=== PATIENT | male | born 1935 | race Caucasian/White ===

== ENCOUNTER → 2023-01-21 | Outpatient (CLI) | payer MEDICARE ==
[~2023-01-21] MED LIST: IOHEXOL-350 75 ML VIAL IV ONE
== END | disposition home or self-care (01) ==
LOC: RAH 14:44
PROVIDERS: ATTEND Physician Assistant Medical
DX: G31.9 Degenerative disease of nervous system, unspecified (principal); H53.461 Homonymous bilateral field defects, right side
CPT/HCPCS: 70470; Q9967

== ENCOUNTER 2023-10-06 12:40 | Day surgery (SDC) | payer MEDICARE ==
[2023-10-04 11:27] LABS: BASOPHILS # (AUTO) 0.06 K/uL (0.00-0.20); BASOPHILS % (AUTO) 0.7 % (0.0-5.0); EOSINOPHILS # (AUTO) 0.22 K/uL (0.00-0.70); EOSINOPHILS % (AUTO) 2.6 % (0.0-8.0); HEMATOCRIT 35.2 % (42-54); IMMATURE GRANULOCYTE ABSOLUTE 0.04 K/uL (0-1); MEAN CORPUSCULAR HGB CONC 30.1 g/dL (32.0-36.0); MEAN CORPUSCULAR VOLUME 79.6 fL (79-99); MONOCYTES # (AUTO) 0.8 K/uL (0.1-1.0); MONOCYTES % (AUTO) 9.2 % (3.0-13.0); NEUTROPHILS # (AUTO) 5.3 K/uL (1.8-7.7); PLATELET COUNT (AUTO) 288 K/uL (130-400); RED BLOOD CELL COUNT(AUTO) 4.42 MIL/uL (4.50-6.20); RED CELL DISTRIBUTION WIDTH 19.7 % (11.0-15.5); WHITE BLOOD COUNT (AUTO) 8.5 K/uL (4.8-10.8)
[2023-10-04 11:37] LABS: POTASSIUM 5.1 mmol/L (3.5-5.1)
[2023-10-04 11:40] LABS: INR 0.98 (0.85-1.15); PROTHROMBIN TIME 11.4 SEC (9.6-11.6)
[2023-10-04 11:42] LABS: PARTIAL THROMBOPLASTIN TIME 30.1 SEC (26.3-35.5)
[2023-10-04 11:56] LABS: B-TYPE NATRIURETIC PEPTIDE 225 pg/mL (0-100)
[2023-10-05 10:02] VITALS: BP 144/74; PULSE 64; RESP 17
[2023-10-06] VITALS (9 sets, daily range): BP systolic 111–146; BP diastolic 53–74; PULSE 64–79; RESP 14–18
[~2023-10-06] VITALS: Ht 172.7 cm; Wt 89.9 kg
[~2023-10-06 12:40] MED LIST changes: -IOHEXOL-350 75 ML VIAL IV ONE; +LEVO75TA10 PO
[2023-10-06] MEDS ORDERED: LIDOCAINE HCL 400MG/20ML VIAL ONE (13:29)
[2023-10-06] MEDS ORDERED: FENTANYL CITRATE PF 50 MCG/1 ML 2ML VIAL ONE (13:29)
[2023-10-06] MEDS ORDERED: IOHEXOL 350 MG/ML 100ML INFUS..BTL IV ONE (13:30)
[2023-10-06] MEDS ORDERED: VERAPAMIL HCL 2.5 MG/ML VIAL ONE (13:30)
[2023-10-06] MEDS ORDERED: HEPARIN 10,000 UNIT/10ML (1,000 UNIT/ML) VIAL ONE (13:30)
[2023-10-06] MEDS ORDERED: MIDAZOLAM HCL 1 MG/ML 2ML VIAL ONE ×2 (13:30→14:26)
[2023-10-06] MEDS ORDERED: NITROGLYCERIN 50MG VIAL ONE (13:30)
[2023-10-06] MEDS ORDERED: 0.9%NACL 1000ML 1,000 ML IV ONE (14:11)
[2023-10-06] MEDS ORDERED: IOHEXOL-350 50ML VIAL IV ONE (14:23)
[2023-10-06] MEDS ORDERED: 0.9%NACL 1000ML 1,000 ML IV SCH (15:00)
[2023-10-06] MEDS ORDERED: HYDRALAZINE 20MG/ML VIAL IV PRN (15:00)
[2023-10-06] MEDS ORDERED: HYDRALAZINE 20MG/ML VIAL ONE (16:29)
== END 2023-10-06 18:15 | disposition home or self-care (01) ==
LOC: DAH 12:40
PROVIDERS: ATTEND Internal Medicine
DX: I35.0 Nonrheumatic aortic (valve) stenosis (principal); I25.10 Atherosclerotic heart disease of native coronary artery without angina pectoris; E03.9 Hypothyroidism, unspecified; G20.A1 Parkinson's disease without dyskinesia, without mention of fluctuations; Z79.899 Other long term (current) drug therapy; Z79.01 Long term (current) use of anticoagulants; Z98.890 Other specified postprocedural states; Z96.653 Presence of artificial knee joint, bilateral; Z79.890 Hormone replacement therapy
CPT/HCPCS: 80048; 83880; 85025; 85610; 85730; 36415; 71045; 93005; 93454; C1894 ×2; C1769; J3010; J3490 ×3; J7030 ×2; J0360; J1644 ×2; J2250 ×2; Q9967 ×2; A4215; A4222; A4221; A4663; A4216; A4606; Q9965 ×2; A4223 ×3; 96366; 99156; 99157; A4649

== ENCOUNTER → 2023-10-19 | Outpatient (CLI) | payer MEDICARE ==
[~2023-10-19] MED LIST changes: +IOHEXOL 350 MG/ML 100ML INFUS..BTL IV ONE
== END | disposition home or self-care (01) ==
LOC: RAH 07:52
PROVIDERS: ATTEND Internal Medicine
DX: I25.10 Atherosclerotic heart disease of native coronary artery without angina pectoris (principal); I35.0 Nonrheumatic aortic (valve) stenosis; I51.7 Cardiomegaly; M47.815 Spondylosis without myelopathy or radiculopathy, thoracolumbar region; I70.90 Unspecified atherosclerosis; K40.90 Unilateral inguinal hernia, without obstruction or gangrene, not specified as recurrent; K44.9 Diaphragmatic hernia without obstruction or gangrene
CPT/HCPCS: 74174; 75574; Q9967

== ENCOUNTER → 2024-02-11 | Outpatient (CLI) | payer MEDICARE ==
[~2024-02-11] MED LIST changes: -IOHEXOL 350 MG/ML 100ML INFUS..BTL IV ONE
== END | disposition home or self-care (01) ==
LOC: SHCH 12:41
PROVIDERS: ATTEND Internal Medicine Cardiovascular Disease
DX: I08.0 Rheumatic disorders of both mitral and aortic valves (principal); I25.10 Atherosclerotic heart disease of native coronary artery without angina pectoris; Z95.2 Presence of prosthetic heart valve
CPT/HCPCS: 93306

== ENCOUNTER 2024-07-08 13:11 | Emergency (ER) | payer MEDICARE ==
[~2024-07-08] VITALS: Ht 172.7 cm; Wt 84.8 kg
[2024-07-08 13:50] LABS: RAPID GROUP A STREP negative (NEGATIVE)
[2024-07-08 14:00] LABS: INFLUENZA TYPE A Negative For Type A (NEGATIVE); INFLUENZA TYPE B Negative For Type B (NEGATIVE)
[2024-07-08 14:03] LABS: SARS-CoV-2, RNA, NAAT POSITIVE SARS CoV-2 (NEGATIVE)
[2024-07-08] MEDS: ONDANSETRON ODT 4MG TAB SL ONE (14:54)
[2024-07-08 15:13] VITALS: BP 143/68; PULSE 57; RESP 16; TEMP 98.3; O2SAT 100
[2024-07-08] MEDS ORDERED: ONDA-243 PO (15:16)
[2024-07-08] MEDS ORDERED: PAXLOVID PO (15:16)
== END 2024-07-08 16:07 | disposition home or self-care (01) ==
LOC: EDH 13:11
DX: U07.1 COVID-19 (principal); R11.0 Nausea; E03.9 Hypothyroidism, unspecified; Z79.890 Hormone replacement therapy; Z88.8 Allergy status to other drugs, medicaments and biological substances; Z96.653 Presence of artificial knee joint, bilateral; Z98.890 Other specified postprocedural states
CPT/HCPCS: 87635; 87804; 87880

== ENCOUNTER 2025-06-16 19:27 | Observation (INO) | payer MEDICARE ==
[~2025-06-16] VITALS: Ht 172.7 cm; Wt 83.9 kg
[~2025-06-16 19:27] MED LIST changes: +ONDA-243 PO; +PAXLOVID PO
[2025-06-16 20:09] LABS: IMMATURE GRANULOCYTE ABSOLUTE 0.04 K/uL (0-1); NUCLEATED RED BLOOD CELLS 0.0 % (0.0-0.19); PLATELET COUNT (AUTO) 253 K/uL (130-400); RED BLOOD CELL COUNT(AUTO) 4.82 MIL/uL (4.50-6.20); RED CELL DISTRIBUTION WIDTH 12.4 % (11.0-15.5); WHITE BLOOD COUNT (AUTO) 8.7 K/uL (4.8-10.8)
[2025-06-16] MEDS: 0.9%NACL 1000ML 1,000 ML IV ONE (20:26)
[2025-06-16 20:30] LABS: CREATININE 0.8 mg/dL (0.5-1.3); GLOMERULAR FILTR. RATE CALC 86 mL/min (>90); GLUCOSE,RANDOM 110 mg/dL (70-105); SODIUM SERUM 135 mmol/L (136-145); UREA NITROGEN, BLOOD 11 mg/dL (7-18)
[2025-06-16 20:40] LABS: CREATINE KINASE, TOTAL 300 U/L (21-232)
[2025-06-16 21:09] LABS: ABG BASE EXCESS -2.5 mmol/L (-2.0-3.0); ABG HCO3 21.2 mmol/L (21.0-28.0); ABG OXYGEN SATURATION 97.3 % (94.0-98.0); ABG PCO2 34 mmHg (35-48); ABG PH 7.413 (7.350-7.450); PO2, ARTERIAL BG 93.4 mmHg (83.0-108.0); TEMPERATURE, CELSIUS BG 37.0 CELSIUS (35.5-37.0); VENT MODE, BG NC (ROOM AIR)
[2025-06-16 21:10] LABS: APPEARANCE,URINE CLEAR (CLEAR); GLUCOSE, URINE (UA) NEGATIVE (NEGATIVE); LEUKOCYTE ESTERASE ,URINE NEGATIVE Leu/uL (NEGATIVE); NITRATE,URINE NEGATIVE (NEGATIVE); OCCULT BLOOD,URINE NEGATIVE (NEGATIVE)
[2025-06-16] MEDS ORDERED: IOHEXOL-350 75 ML VIAL IV ONE (21:10)
[2025-06-16 21:13] LABS: ADD UA MICROSCOPIC YES
[2025-06-16 21:17] LABS: AMPHET/METH SCREEN,URINE NEGATIVE (NEGATIVE); BARBITURATE SCREEN, URINE NEGATIVE (NEGATIVE); CANNABINOID SCREEN,URINE NEGATIVE (NEGATIVE); COCAINE SCREEN,URINE NEGATIVE (NEGATIVE)
--- NOTE | 2025-06-16 21:40 | HMCIMG ---
EXAM: CR Chest, 1 View. CLINICAL HISTORY: sob COMPARISON: Radiograph dated October 04, 2023 FINDINGS: Stimulator device and leads are not changing positions. LUNGS: There is no mass, infiltrate, or acute pulmonary abnormality. PLEURAL SPACES: No evidence of pleural effusion or pneumothorax. MEDIASTINUM: Heart size is stable. Pulmonary vessels are within normal limits. BONES: No acute osseous abnormality. IMPRESSION: 1. No acute cardiopulmonary findings. /[place]
--- NOTE | 2025-06-16 21:46 | HMCIMG ---
EXAM: CT Head Without IV contrast. CLINICAL HISTORY: Patient presents with altered mental status. TECHNIQUE: Axial computed tomography images of the head/brain without intravenous contrast. COMPARISON: CT head dated January 21, 2023. 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 Linear electrode leads are identified in the deep brain nuclei along the bilateral thalami, consistent with deep brain stimulation hardware. There is diffuse cerebral atrophy characterized by prominence of the cortical sulci and ventricular system. There are periventricular hypoattenuations consistent with chronic microangiopathic ischemic changes. No evidence of acute hemorrhage. No mass lesion. No CT evidence for acute territorial infarct. No midline shift or extra-axial collections. VENTRICLES: No hydrocephalus. ORBITS: The orbits are unremarkable. SINUSES AND MASTOIDS: The paranasal sinuses and mastoid air cells are clear. BONES: Bilateral frontal craniotomy defects and postsurgical changes involving the left parietal bone. No acute fracture. SOFT TISSUES: Unremarkable. 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 Diffuse cerebral atrophy and periventricular chronic microangiopathic ischemic changes. Deep brain stimulation hardware in expected position along bilateral thalami. Bilateral frontal craniotomy defects and postsurgical changes involving the left parietal bone. No acute intracranial abnormality. /[place]
--- NOTE | 2025-06-16 22:42 | HMCIMG ---
EXAM: CT Abdomen and Pelvis without and with IV contrast. CLINICAL HISTORY: Nausea and vomiting. TECHNIQUE: Thin collimated axial CT images of the abdomen and pelvis were obtained with sagittal and coronal reformatted images also submitted. CT scan done according to ALARA (As Low As Reasonably Achievable). CONTRAST: Intravenous contrast was administered. COMPARISON: None. FINDINGS: Unremarkable visualized lung parenchyma. Coronary artery calcification and prosthetic aortic valve in place. Small hiatus hernia. There is no focal abnormality appreciated within the liver, gallbladder, pancreas, spleen, adrenals, or kidneys. There is no obvious bowel wall thickening. Bowel loops are normal in caliber without evidence of obstruction or ileus. The appendix is normal. Mild constipation. Uncomplicated colonic diverticulosis. Partially distended urinary bladder with Shafer's catheter in place. Mild prostatomegaly. Moderate calcific plaques in the abdominal aorta. No lymphadenopathy. No free fluid. Fat-containing bilateral inguinal hernias. There is no acute osseous abnormality. Moderate thoracolumbar spondylosis and dextroscoliosis. IMPRESSION: 1. No acute abdominal or pelvic abnormality. 2. Small hiatus hernia. 3. Coronary artery calcification and prosthetic aortic valve. 4. Mild prostatomegaly. 5. Uncomplicated colonic diverticulosis with mild constipation. 6. Bilateral fat-containing inguinal hernias. 7. Moderate thoracolumbar spondylosis and dextroscoliosis. /[place]
--- NOTE | 2025-06-16 23:54 | HP ---
History of Present Illness Reason for Visit: sob History of Present Illness Mr. Wheatley is a 89 year old male that was seen and examined today on 06/16/2025. Patient is unable to provide any past medical history at this time due to receiving Valium in the emergency department. Patient's , Trevon Glover is at bedside and provides the following information. At about 4:30 p.m. patient began to appears short of breath. Location is to lungs. Duration is on and off. Character is described as, " like he was having trouble breathing, look like he was struggling but he was not breathing fast. "There was no aggravating factors. Symptoms were alleviated after receiving Valium in the emergency department. reports associated burping and altered mental status. Like" he is not himself. " Today in the emergency department CBC unremarkable, chemistry unremarkable, urinalysis unremarkable, urine toxicology unremarkable, chest x-ray unremarkable, head CT shows focal encephalomalacia of the left occipital lobe, chronic ischemic changes, deep brain stimulator hardware. Emergency room physician recommended that patient be admitted with a diagnosis of shortness of breath and altered mental status. Past Medical History ADDITIONAL PAST MEDICAL HISTORY: [Hypothyroidism, CAD] SOCIAL HISTORY: [Negative for smoking, drug use. Patient drinks alcohol about once a week usually one beer, one Freda, or one glass of wine. Patient lives with his . Patient is typically independent of all his ADLs.] SURGICAL HISTORY: [Brain stimulator implant, TAVR, back cyst excision, hernia repair, bilateral knee replacement, AICD] Review of Systems General: No Fever, No Chills, No Night Sweats, No Fatigue, No Malaise, No Appetite, No Other HEENT: No Head Aches, No Visual Changes, No Eye Pain, No Ear Pain, No Dysphasia, No Sinus Congestion, No Post Nasal Drip, No Sore Throat, No Other Pulmonary: Dyspnea; No Cough, No Pleuritic Chest Pain, No Other Cardiovascular: No: Chest Pain, Palpitations, Orthopnea, Paroxysmal Noc. Dyspnea, Edema, Lt Headedness, Other Gastrointestinal: Other (Burping); No: Nausea, Vomiting, Abdominal Pain, Diarrhea, Constipation, Melena, Hematochezia Genitourinary: No Dysuria, No Frequency, No Incontinence, No Hematuria, No Retention, No Other Musculoskeletal: No: other, neck pain, shoulder pain, arm pain, back pain, hand pain, leg pain, foot pain Skin: No Urticaria, No Rash, No Other Neurological: Confusion; No: Weakness, Numbness, Incoordination, Change in speech, Seizures, Other Allergies: Coded Allergies: Gkctvtn-Sjm-Gce Reductase Inhibitor (Unverified Allergy, Intermediate, 10/23/13) Scheduled Levothyroxine Sodium (Levothyroxine Sodium), 1 TAB PO DAILY, (Reported) [Paxlovid], 300 MG PO BID Scheduled PRN Ondansetron (Ondansetron Odt), 4 MG PO Q6HPRN PRN for nausea Exam Vital Signs Vital Signs Date Time Temp Pulse Resp B/P (MAP) Pulse Ox O2 Delivery O2 Flow Rate FiO2 06/16/25 21:09 98.2 72 18 118/56 99 Room Air* 0 21 General Appearance: Alert (X1) HEENT: Atraumatic, EOMI Respiratory: Clear to auscultation, Normal air movement, NL respiratory effort Cardiovascular: Regular rate, Regular rhythm, Normal S1, Normal S2 Abdominal: Normal bowel sounds, Soft, No tenderness Extremities: No edema Skin: No significant lesion Neuro: Other (Unable to assess) Psych/Mental Status: Other (Per patient is confused) Assessment/Plan ASSESSMENT: [ Altered mental status, POA Shortness of breath, POA Hypothyroidism, POA CAD] PLAN: [ Admit patient to medical floor as inpatient status. Fall precautions. DuoNebs every 6 hours. Check TSH in a.m.. Consult teleNeurology Service for evaluation and further recommendations. Reviewed patient's CT which shows focal encephalomalacia to the left occipital lobe and chronic ischemic changes as well as deep brain stimulator implant however states that at baseline patient typically has regular conversations and nose current events. Patient received IV Valium in the emergency department. Atorvastatin 40 mg by mouth daily. GI prophylaxis, famotidine DVT prophylaxis, Lovenox ADVANCED CARE PLANNING 1. Which of the following were discussed? Hospice Care - Yes Therapeutic options - yes Advance Directives - Yes - patient does not have any advance directives in place at this time Other discussions - patient's can make decisions for him if he becomes unable. wishes for patient to remain a full code at this time 2. Discussed with who? , Trevon Glover 3. Voluntary nature of this service was explained to the patient? Yes 4. Amount of time spent - ___16 minutes____ 5. Reviewed by Physician? (if this service was performed by NPP) Yes This document was generated in part using voice recognition software, occasional wrong word or sound alike substitutions may have occurred due to the inherent limitations of voice recognition software. Read the chart carefully and recognize using context, where the substitutions have occurred. Although every effort was made to edit the content, food crops farm hand and typing errors may occur ATTESTATION BY PHYSICIAN I have seen and examined the patient. I reviewed the documentation, medical decision making, and treatment plan as noted by the mid-level provider above. I agree with the findings and plan of care. ] JANET BASS [facility] Jun 16, 2025 23:54
--- NOTE | 2025-06-16 23:55 | ERN ---
General Chief Complaint: Shortness of Breath Stated Complaint: SOB X 1-2 HOURS Time Seen by MD: 19:36 Time Seen by Midlevel: 19:36 Source: patient, family () History of Present Illness Initial Comments The patient is an 89-year-old male presenting to the emergency department for evaluation of shortness of breath. According to EMS the initial call was for shortness for breath. When arrived to the emergency department she states her was doing yd work when he became short of breath and diaphoretic. On arrival patient is unable to answer any of our questions. When asked if he is in pain the patient does not answer. Allergies: Coded Allergies: Gkuicjl-Qoj-Aba Reductase Inhibitor (Unverified Allergy, Intermediate, 10/23/13) Home Meds Active Scripts Ondansetron (Ondansetron Odt) 4 Mg Tab.rapdis, 4 MG PO Q6HPRN PRN for nausea, #16 TAB 0 Refills Prov:DAYAN LUIS FAMILY DAY CARE WORKER 07/08/24 [Paxlovid] 3,00/,150 No Conflict Check, 300 MG PO BID for 5 Days, #50 0 Refills THREE TABLETS BY MOUTH TWICE A DAY FOR FIVE DAYS. Prov:DAYAN LUIS NP 07/08/24 Reported Medications Levothyroxine Sodium (Levothyroxine Sodium) 75 Mcg Tablet, 1 TAB PO DAILY 10/05/23 Past Medical History Past Medical History: Heart Disease, Hypothyroid Past Surgical History: Pacer/AICD, Other Surgical History Other: BILAT KNEE REPLACEMENT, DBS, ABD HERNIA REPAIR, CYST, BACK SX,TAVR ROS Dictation CONSTITUTIONAL: Negative except for HPI HEAD/FACE: Negative except for HPI EENT: Negative except for HPI RESPIRATORY: Negative except for HPI GASTROINTESTINAL/ABDOMINAL: Negative except for HPI GENITOURINARY: Negative except for HPI MUSCULOSKELETAL: Negative except for HPI INTEGUMENTARY: Negative except for HPI NEUROLOGICAL/PSYCH: Negative except for HPI HEMATOLOGIC/LYMPHATIC: Negative except for HPI All Systems Negative, Except as noted above. 13 point review of systems assessed and all negative except for above. Physical Exam Physical Exam Dictation Vital Signs reviewed General Appearance: Alert, nonverbal Head and Face: non-traumatic. Eyes: PERRL, pink conjunctivas, eyelid no trauma, anterior chamber with arcus senilis. Ears: Pinnas intact and no signs of trauma or erythema ear canals clear and no discharge TM no erythema Nose: No discharge, no bleeding. Oropharynx: Mouth normal, tongue pink, pharynx clear,no erythema, tonsils no exudates, no abscesses noted, mucous membrane moist Neck: Supple, non-tender, no thyromegaly, no masses, no JVD, no bruits Breast:Deferred Chest:No tenderness, no crepitus, no paradoxical movement, no retractions Lungs:Clear, well-ventilated, symmetric, no rales, no wheezing, no rhonchi, no stridor, good breath sounds bilaterally Heart: Regular rate, regular rhythm, no murmur, no gallops Vascular: no peripheral edema, Abdomen: Soft, positive bowel sounds, nondistended, no guarding, nontender, no rebound, no masses no hepatomegaly, no splenomegaly, no Perez's sign, no hernias. Rectal: Deferred Genital: Deferred Neurological: Moves all four extremities spontaneously , follows simple commands Musculoskeletal: Neck nontender, full range of motion, back nontender, full range of motion, Extremities: nontender, full range of motion Skin: Color pink, dry, no turgor, no rash, no lacerations, no abrasions, no contusions. Lymphatic: Deferred Results Laboratory and Microbiology Lab and Micro Result Laboratory Tests Test 06/16/25 19:59 06/16/25 21:00 06/16/25 21:07 White Blood Count 8.7 K/uL (4.8-10.8) Red Blood Count 4.82 MIL/uL (4.50-6.20) Hemoglobin 15.4 g/dL (14.0-18.0) Hematocrit 42.5 % (42-54) Mean Corpuscular Volume 88.2 fL (79-99) Mean Corpuscular Hemoglobin 32.0 pg (27.0-33.0) Mean Corpuscular Hemoglobin Concent 36.2 g/dL (32.0-36.0) H Red Cell Distribution Width 12.4 % (11.0-15.5) Platelet Count 253 K/uL (130-400) Mean Platelet Volume 10.0 fL (7.5-10.5) Immature Granulocyte % (Auto) 0.5 % (0-1) Neutrophils (%) (Auto) 67.1 % (40.0-77.0) Lymphocytes (%) (Auto) 20.9 % (21.0-51.0) L Monocytes (%) (Auto) 9.3 % (3.0-13.0) Eosinophils (%) (Auto) 1.5 % (0.0-8.0) Basophils (%) (Auto) 0.7 % (0.0-5.0) Neutrophils # (Auto) 5.9 K/uL (1.8-7.7) Lymphocytes # (Auto) 1.8 K/uL (1.0-4.8) Monocytes # (Auto) 0.8 K/uL (0.1-1.0) Eosinophils # (Auto) 0.13 K/uL (0.00-0.70) Basophils # (Auto) 0.06 K/uL (0.00-0.20) Absolute Immature Granulocyte (auto 0.04 K/uL (0-1) Nucleated Red Blood Cells 0.0 % (0.0-0.19) Red Blood Cell Morphology See comments Sodium Level 135 mmol/L (136-145) L Potassium Level 3.9 mmol/L (3.5-5.1) Chloride Level 102 mmol/L (101-111) Carbon Dioxide Level 20 mmol/L (21-32) L Blood Urea Nitrogen 11 mg/dL (7-18) Creatinine 0.8 mg/dL (0.5-1.3) Glomerular Filtration Rate Calc 86 mL/min (>90) Random Glucose 110 mg/dL (70-105) H Total Calcium 9.3 mg/dL (8.5-10.1) Magnesium Level 1.90 mg/dL (1.80-2.40) Ammonia < 10 umol/L (11-32) L Total Creatine Kinase 300 U/L (21-232) H Troponin I High Sensitivity 16 ng/L (4-75) B-Type Natriuretic Peptide 113 pg/mL (0-100) H Serum Alcohol < 3 mg/dL (0-10) Urine Color LIGHT-YELLOW (YELLOW) Urine Appearance CLEAR (CLEAR) Urine pH 7.5 (5.0-8.0) Urine Specific [place] 1.013 (1.001-1.031) Urine Protein NEGATIVE mg/dL (NEGATIVE) Urine Glucose (UA) NEGATIVE mg/dL (NEGATIVE) Urine Ketones 10 mg/dL (NEGATIVE) H Urine Occult Blood NEGATIVE (NEGATIVE) Urine Nitrate NEGATIVE (NEGATIVE) Urine Bilirubin NEGATIVE mg/dL (NEGATIVE) Urine Urobilinogen 0.2 mg/dL (0.2-1.0) Urine Leukocyte Esterase NEGATIVE [place]/uL Urine RBC 0-1 /HPF (0-1) Urine WBC 2-5 /HPF (0-1) H Urine Bacteria RARE /HPF (None Seen) Urine Opiates Screen NEGATIVE (NEGATIVE) Urine Barbiturates Screen NEGATIVE (NEGATIVE) Urine Phencyclidine Screen NEGATIVE (NEGATIVE) Urine Amphetamines Screen NEGATIVE (NEGATIVE) Urine Benzodiazepines Screen NEGATIVE (NEGATIVE) Urine Cocaine Screen NEGATIVE (NEGATIVE) Urine Marijuana (THC) Screen NEGATIVE (NEGATIVE) Blood Gas Specimen Type Arterial Arterial Blood pH 7.413 (7.350-7.450) Arterial Blood Partial Pressure CO2 34 mmHg (35-48) L Arterial Blood Partial Pressure O2 93.4 mmHg (83.0-108.0) Arterial Blood HCO3 21.2 mmol/L (21.0-28.0) Arterial Blood Oxygen Saturation 97.3 % (94.0-98.0) Arterial Blood Base Excess -2.5 mmol/L (-2.0-3.0) L Blood Gas Temperature 37.0 CELSIUS (35.5-37.0) Blood Gas Flow-by 2.50 L/min (0.00-15.00) Blood Gas Vent Mode NC (ROOM AIR) FiO2 30.0 % Blood Gas Specimen Comment INA CHOWDHURY Labs Reviewed?: Yes MDM MDM: The patient is an 89-year-old male presenting to the emergency department for evaluation of shortness of breath. According to EMS the initial call was for shortness for breath. When arrived to the emergency department she states her was doing yd work when he became short of breath and diaphoretic. On arrival patient is unable to answer any of our questions. When asked if he is in pain the patient does not answer. On physical examination the patient appears to be in mild discomfort secondary to pain. However when asked if he is in pain the patient does not give you a direct answer. He does follow simple commands and is able to move all four extremities. No facial droop is noted. Given that the initial call to EMS was shortness of breath ABG was obtained which appears to be normal. CBC shows no leukocytosis, no anemia, no thrombocytopenia. Chemistries reveal a sodium of 135. CK slightly elevated at 300. BNP is 113. Troponin is negative. Urine drug screen is negative. Serum alcohol is negative. According to who is at bedside the patient is not at his baseline and has never behaved this way. A CT scan of the head was obtained which does not reveal any acute intracranial abnormality. While in the emergency department the patient became nauseous and had one episode of vomiting. Given that the patient is a poor historian a CT scan of the abdomen/pelvis was obtained which reveals no acute abdominal or pelvic abnormality. On re-evaluation the patient is not back to his baseline according to his . We will admit for altered mental status and further evaluation. Differential diagnosis: Altered mental status, urinary retention, Rationale: Tests considered and ordered secondary to shared decision making include: Previous outside records reviewed: Old ER visits. Risk of complication and/or morbidity or mortality of patient management: None Medications-Per medication reconciliation Need for hospitalization: Patient does meet criteria for hospitalization. Need for emergency major/minor surgery: No There are no social concerns with this patient. Prescription drug management Prescriptions will include symptomatic care Patient's prior external medical records from other ER visits were reviewed by me as indicated. Prior testing and results from previous visits were reviewed. Prior tests were taken into account with medical decision making and resource utilization, independent historian/historians were used to obtain complete [facility] history. I independently interpreted the test that were performed, results were reviewed by me and considered findings on radiology if ordered. Medical management and examination interpretation discussions were had by me with other qualified healthcare professionals as indicated for the patient's care. ED Course Orders Procedure Category Date Status Time 12 Lead Ekg Tracing- EKG 06/16/25 Logged Technical 19:48 Cbc With Differential LAB 06/16/25 Complete 19:48 Basic Metabolic Panel LAB 06/16/25 Complete 19:48 B-Type Natriuretic LAB 06/16/25 Complete Peptide 19:48 Creatine Kinase, Total LAB 06/16/25 Complete 19:48 Drug Screen Urine LAB 06/16/25 Complete 19:48 Magnesium LAB 06/16/25 Complete 19:48 Troponin I High LAB 06/16/25 Complete Sensitivity 19:48 Chest 1vw RAD 06/16/25 Resulted 19:48 0.9%Nacl 1000ml (Ns PHA 06/16/25 Complete 1000ml) 20:00 Arterial Blood Gas RT 06/16/25 Transmitted 19:48 Ct Head/Brain W/O CT 06/16/25 Resulted Contrast 19:48 Urinalysis Profile LAB 06/16/25 Complete 19:48 Ammonia LAB 06/16/25 Complete 19:48 Alcohol, Blood LAB 06/16/25 Complete 19:56 Diazepam 5 Mg/Ml 2 Ml PHA 06/16/25 Complete Syg (Valium 5 Mg/M 21:00 Ondansetron 4mg Inj PHA 06/16/25 Complete (Zofran 4mg Inj) 21:00 Ct Abdomen/Pelvis CT 06/16/25 Resulted W/Contrast 20:43 Nurse Driven Shafer DARIUS 06/16/25 In Process Removal Pro 20:44 Ondansetron 4mg Inj PHA 06/16/25 Complete (Zofran 4mg Inj) 20:45 Arterial Blood Gas LAB 06/16/25 Complete 21:07 Iohexol (Omnipaque) PHA 06/16/25 Complete 21:10 Admit Orders ADM 06/16/25 Transmitted 23:54 Current Medications Medications (Trade) Dose Ordered Sig/Khushi Route PRN Reason Start Time Stop Time Status Last Admin Dose Admin Diazepam (VALium 5 MG/ML 2 ML SYG) 2.5 mg ONCE ONCE IVP 06/16/25 21:00 06/16/25 21:01 DC 06/16/25 21:05 Iohexol (Omnipaque) 75 ml STK-MED ONCE IV 06/16/25 21:10 06/16/25 21:10 DC Ondansetron HCl (zoFRAN 4MG INJ) 4 mg ONCE ONCE IVP 06/16/25 21:00 06/16/25 21:01 DC 06/16/25 21:05 Ondansetron HCl (zoFRAN 4MG INJ) 4 mg STK-MED ONCE .ROUTE 06/16/25 20:45 06/16/25 20:46 DC Sodium Chloride 1,000 ml @ 0 mls/hr ONCE ONCE IV 06/16/25 20:00 06/16/25 20:01 DC 06/16/25 20:26 Vital Signs Date Time Temp Pulse Resp B/P (MAP) Pulse Ox O2 Delivery O2 Flow Rate FiO2 06/16/25 21:09 98.2 72 18 118/56 99 Room Air* 0 21 06/16/25 19:56 98.1 68 18 128/47 98 Room Air* 0 21 06/16/25 19:30 97.9 64 28 169/92 99 Nasal Cannula 2.0 DX & DISP Disposition: Inpatient Departure Impression: Primary Impression: Altered mental status Condition: Stable Referrals: EDMUNDO YUN (PCP) I have reviewed the case, and I agree with, Diagnosis and Plan I performed the substantive portion of the visit. I have reviewed and personally made and approve the management plan that is documented in the note by myself or the [facility]. I acknowledge for responsibility for the patient's management plan. EMBER HOLLOWAY Jun 16, 2025 23:55
[2025-06-17] VITALS (7 sets, daily range): BP systolic 110–143; BP diastolic 55–88; PULSE 68–88; RESP 18–20; TEMP 97.7–98.3; O2SAT 95–98
[2025-06-17 01:42] LABS: SARS-CoV-2, RNA, NAAT NEGATIVE SARS CoV-2 (NEGATIVE)
--- NOTE | 2025-06-17 02:11 | NUR ---
REPORT GIVEN TO REDD ANGLIN
--- NOTE | 2025-06-17 05:58 | EKG ---
[facility] Test Date: 2025-06-16 Test Time: 19:37:11 Pat Name: CHANEL HOLT [facility] Room: 322 1 Gender: M Regrinder: [id number] Requested By: EMBER HOLLOWAY Order Number: [id number] Reading MD: Rachel Houser Measurements Intervals [place] Rate: 72 P: 52 IN: 213 QRS: -29 QRSD: 104 T: 162 QT: 420 QTc: 451 Interpretive Statements Sinus rhythm Multiple ventricular premature complexes Borderline prolonged IN interval Consider anterior infarct Compared to ECG 10/04/2023 11:18:07 Ventricular premature complex(es) now present Myocardial infarct finding now present Electronically Signed On 06-17-2025 15:40:45 CDT by Rachel Houser Please click the below link to view image of tracing.
[2025-06-17 06:29] LABS: IMMATURE GRANULOCYTE ABSOLUTE 0.04 K/uL (0-1); NUCLEATED RED BLOOD CELLS 0.0 % (0.0-0.19); PLATELET COUNT (AUTO) 216 K/uL (130-400); RED BLOOD CELL COUNT(AUTO) 4.59 MIL/uL (4.50-6.20); RED CELL DISTRIBUTION WIDTH 12.8 % (11.0-15.5); WHITE BLOOD COUNT (AUTO) 9.4 K/uL (4.8-10.8)
[2025-06-17 06:56] LABS: CREATININE 0.8 mg/dL (0.5-1.3); GLOMERULAR FILTR. RATE CALC 86.0 mL/min (>90); GLUCOSE,RANDOM 104.0 mg/dL (70-105); PHOSPHORUS 3.4 mg/dL (2.5-4.9); SODIUM SERUM 138.0 mmol/L (136-145); UREA NITROGEN, BLOOD 7.0 mg/dL (7-18)
[2025-06-17] MEDS ORDERED: LEVO75 PO (08:42)
[2025-06-17] MEDS: FAMOTIDINE 20MG TAB PO SCH (08:42)
[2025-06-17] MEDS: ENOXAPARIN SODIUM 40 MG/0.4 ML SYRINGE SQ SCH (08:43)
--- NOTE | 2025-06-17 10:50 | PN ---
[facility] PROGRESS NOTE Date of Service: Jun 17, 2025 Time of Service: 10:48 SUBJECTIVE: [ ] REVIEW OF SYSTEMS CONSTITUTIONAL: Denies fevers, chills, or night sweats. No unintentional weight loss reported. NEUROLOGICAL: Denies headache, amaurosis fugax, motor weakness, sensory deficit, vertigo/spinning sensation, gait abnormalities, or tremors. ENT: No hearing loss, otalgia, otorrhea, rhinitis, rhinorrhea, hoarseness, or sore throat. CARDIOVASCULAR: Denies any exertional angina, dyspnea on exertion, orthopnea, paroxysmal nocturnal dyspnea, palpitations, life-threatening arrhythmias, claudication. PULMONARY: Denies any shortness of breath, cough, phlegm/sputum, hemoptysis, pleuritic chest pain. SLEEP: Denies morning headaches, daytime somnolence or napping. Denies difficulty falling asleep, staying asleep, waking from sleep. Denies knowledge of snoring. GASTROINTESTINAL: Denies any type of dysphagia to either liquids or solids. Denies nausea, vomiting, pyrosis, early satiety, abdominal pain, diarrhea, constipation, or changes in stool consistency or caliber. Denies coffee-ground emesis, hematemesis, hematochezia, or melanotic stools. GENITOURINARY: Denies frequency, urgency, nocturia, hematuria or incontinence (Storage/Irritative symptoms.) Low urinary stream, straining to void, urinary i ntermittency or hesitancy, splitting of the voiding stream, terminal dribbling. ENDOCRINOLOGIC: Denies polyuria, polydipsia, polyphagia or heat/cold intolerances. HEMATOLOGIC: Denies thrombophilia/previous clots, or coagulopathy/bleeding disorders. ONCOLOGIC: Denies personal history of malignancy. DERMATOLOGIC: Denies rashes or pruritus. PSYCHIATRIC: Denies any suicidal or homicidal ideation. Denies hallucinations. PHYSICAL EXAM GENERAL APPEARANCE: The patient is awake, alert, and oriented, in no acute cardiopulmonary distress. NEUROLOGICAL: Cranial nerves II-XII grossly intact. Motor is 5/5 in bilateral upper and lower extremities proximal to distal. No sensory deficits. HEENT: Face is symmetric. Pupils are equal and reactive. Extraocular movements are intact. NECK: Supple. No JVD. No thyromegaly. No submental, submandibular, pre- /postauricular, occipital or supraclavicular lymphadenopathy. CHEST: Normal chest expansion. No Telemetry. LUNGS: Absence of any rales, rhonchi or any wheezing. CARDIOVASCULAR: Regular. S1 and S2 normal. No appreciable rubs, murmurs or gallops. ABDOMEN: Soft, nontender, and nondistended. There is no rebound, voluntary guarding, or rigidity. : Deferred. No Shafer. EXTREMITIES: Non-edematous and not cyanotic. No clubbing. Good capillary refill. SKIN: No skin breakdown. Vital Signs (last 8hr) Date Time Temp Pulse Resp B/P (MAP) Pulse Ox O2 Delivery O2 Flow Rate FiO2 06/17/25 08:00 98.2 86 19 136/88 99 Room Air 06/17/25 06:47 80 18 06/17/25 06:47 80 20 N/A Room Air LABS: Laboratory: Test 06/17/25 09:36 06/17/25 06:23 06/17/25 01:21 06/16/25 21:07 Range/Units Lactic Acid Level 1.1 0.8-2.5 mmol/L Ammonia < 10 L 11-32 umol/L C-Reactive Protein, Quantitative 8.10 H 0.5-3.0 mg/L White Blood Count 9.4 4.8-10.8 K/uL Red Blood Count 4.59 4.50-6.20 MIL/uL Hemoglobin 14.3 14.0-18.0 g/dL Hematocrit 41.6 L 42-54 % Mean Corpuscular Volume 90.6 79-99 fL Mean Corpuscular Hemoglobin 31.2 27.0-33.0 pg Mean Corpuscular Hemoglobin Concent 34.4 32.0-36.0 g/dL Red Cell Distribution Width 12.8 11.0-15.5 % Platelet Count 216 130-400 K/uL Mean Platelet Volume 9.6 7.5-10.5 fL Immature Granulocyte % (Auto) 0.4 0-1 % Neutrophils (%) (Auto) 69.4 40.0-77.0 % Lymphocytes (%) (Auto) 18.7 L 21.0-51.0 % Monocytes (%) (Auto) 10.6 3.0-13.0 % Eosinophils (%) (Auto) 0.5 0.0-8.0 % Basophils (%) (Auto) 0.4 0.0-5.0 % Neutrophils # (Auto) 6.5 1.8-7.7 K/uL Lymphocytes # (Auto) 1.8 1.0-4.8 K/uL Monocytes # (Auto) 1.0 0.1-1.0 K/uL Eosinophils # (Auto) 0.05 0.00-0.70 K/uL Basophils # (Auto) 0.04 0.00-0.20 K/uL Absolute Immature Granulocyte (auto 0.04 0-1 K/uL Nucleated Red Blood Cells 0.0 0.0-0.19 % Sodium Level 138 136-145 mmol/L Potassium Level 4.3 3.5-5.1 mmol/L Chloride Level 104 101-111 mmol/L Carbon Dioxide Level 24 21-32 mmol/L Blood Urea Nitrogen 7 7-18 mg/dL Creatinine 0.8 0.5-1.3 mg/dL Glomerular Filtration Rate Calc 86 >90 mL/min Random Glucose 104 70-105 mg/dL Total Calcium 8.6 8.5-10.1 mg/dL Phosphorus Level 3.4 2.5-4.9 mg/dL Magnesium Level 2.00 1.80-2.40 mg/dL B-Type Natriuretic Peptide 141 H 0-100 pg/mL Thyroid Stimulating Hormone (TSH) 1.24 0.36-3.74 uIU/mL SARS-CoV-2, RNA, NAAT NEGATIVE SARS CoV-2 NEGATIVE Blood Gas Specimen Type Arterial Arterial Blood pH 7.413 7.350-7.450 Arterial Blood Partial Pressure CO2 34 L 35-48 mmHg Arterial Blood Partial Pressure O2 93.4 83.0-108.0 mmHg Arterial Blood HCO3 21.2 21.0-28.0 mmol/L Arterial Blood Oxygen Saturation 97.3 94.0-98.0 % Arterial Blood Base Excess -2.5 L -2.0-3.0 mmol/L Blood Gas Temperature 37.0 35.5-37.0 CELSIUS Blood Gas Flow-by 2.50 0.00-15.00 L/min Blood Gas Vent Mode NC ROOM AIR FiO2 30.0 % Blood Gas Specimen Comment RB RN [place] Test 06/16/25 21:00 06/16/25 19:59 Range/Units Urine Color LIGHT-YELLOW YELLOW Urine Appearance CLEAR CLEAR Urine pH 7.5 5.0-8.0 Urine Specific [place] 1.013 1.001-1.031 Urine Protein NEGATIVE NEGATIVE mg/dL Urine Glucose (UA) NEGATIVE NEGATIVE mg/dL Urine Ketones 10 H NEGATIVE mg/dL Urine Occult Blood NEGATIVE NEGATIVE Urine Nitrate NEGATIVE NEGATIVE Urine Bilirubin NEGATIVE NEGATIVE mg/dL Urine Urobilinogen 0.2 0.2-1.0 mg/dL Urine Leukocyte Esterase NEGATIVE NEGATIVE [place]/uL Urine RBC 0-1 0-1 /HPF Urine WBC 2-5 H 0-1 /HPF Urine Bacteria RARE None Seen /HPF Urine Opiates Screen NEGATIVE NEGATIVE Urine Barbiturates Screen NEGATIVE NEGATIVE Urine Phencyclidine Screen NEGATIVE NEGATIVE Urine Amphetamines Screen NEGATIVE NEGATIVE Urine Benzodiazepines Screen NEGATIVE NEGATIVE Urine Cocaine Screen NEGATIVE NEGATIVE Urine Marijuana (THC) Screen NEGATIVE NEGATIVE Red Blood Cell Morphology See comments Total Creatine Kinase 300 H 21-232 U/L Troponin I High Sensitivity 16 4-75 ng/L Serum Alcohol < 3 0-10 mg/dL Current Medications Medications (Trade) Dose Ordered Sig/Khushi Route PRN Reason Start Time Stop Time Status Last Admin Dose Admin Acetaminophen (TYLenol 325MG TAB) 650 mg Q6H PRN PO TEMPERATURE GREATER THAN 101.5 06/17/25 00:30 07/17/25 00:29 Albuterol (DUOneb) 1 UDVIAL [id number] IH 06/17/25 06:00 07/17/25 05:59 06/17/25 06:42 1 UDVIAL Enoxaparin Sodium (Lovenox) 40 mg DAILY SQ 06/17/25 09:00 07/17/25 08:59 06/17/25 08:43 40 MG Famotidine (Pepcid 20mg Tab) 20 mg DAILY PO 06/17/25 09:00 07/17/25 08:59 06/17/25 08:42 20 MG Guaifenesin (RobiTUSSin SUGAR-FREE 100 MG/ 5 ML UDCUP) 400 mg Q4H PRN PO cough 06/17/25 00:30 07/17/25 00:29 Hydralazine HCl (APRESOLine 20MG INJ) 10 mg Q6H PRN IV For:SBP above 160;DBP above 90 06/17/25 00:30 07/17/25 00:29 Levothyroxine Sodium (SYNTHroid 75MCG TAB) 75 mcg SYN PO 06/18/25 06:30 07/18/25 06:29 Morphine Sulfate (morPHINE 2MG SYG) 2 mg Q4H PRN IVP SEVERE PAIN (7-10) 06/17/25 00:30 06/24/25 00:29 Ondansetron HCl (zoFRAN 4MG INJ) 4 mg Q6H PRN IV NAUSEA/VOMITING 06/17/25 00:30 07/17/25 00:29 Quetiapine Fumarate (SEROquel 25 mg TAB) 25 mg BID PO 06/17/25 09:00 06/17/25 02:40 DC DIAGNOSTICS / RADIOLOGY: PATIENT: CHANEL HOLT MR#: [id number] : 1935 SEX: M AGE: 89 LOCATION: [facility] ORDER 48 STATUS: REG ER [facility] REPORT#: [id number] SERVICE 47 REASON: sob ORDERING PHYSICIAN: EMBER HOLLOWAY PROCEDURE: CXR1VW - CHEST 1VW EXAM: CR Chest, 1 View. CLINICAL HISTORY: sob COMPARISON: Radiograph dated October 04, 2023 FINDINGS: Stimulator device and leads are not changing positions. LUNGS: There is no mass, infiltrate, or acute pulmonary abnormality. PLEURAL SPACES: No evidence of pleural effusion or pneumothorax. MEDIASTINUM: Heart size is stable. Pulmonary vessels are within normal limits. BONES: No acute osseous abnormality. IMPRESSION: 1. No acute cardiopulmonary findings. /[place] DICTATED BY: OSCAR OLMSTEAD Jr., MD DATE: 06/16/252239 ELECTRONICALLY SIGNED BY: OSCAR OLMSTEAD Jr., MD DATE: 06/16/252239 PATIENT: CHANEL HOLT MR#: [id number] : 1935 SEX: M AGE: 89 LOCATION: [facility] ORDER 48 STATUS: REG ER REPORT#: [id number] SERVICE 47 REASON: ams ORDERING PHYSICIAN: EMBER HOLLOWAY PROCEDURE: HEAD WO - CT HEAD/BRAIN W/O CONTRAST EXAM: CT Head Without IV contrast. CLINICAL HISTORY: Patient presents with altered mental status. TECHNIQUE: Axial computed tomography images of the head/brain without intravenous contrast. COMPARISON: CT head dated January 21, 2023. 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 Linear electrode leads are identified in the deep brain nuclei along the bilateral thalami, consistent with deep brain stimulation hardware. There is diffuse cerebral atrophy characterized by prominence of the cortical sulci and ventricular system. There are periventricular hypoattenuations consistent with chronic microangiopathic ischemic changes. No evidence of acute hemorrhage. No mass lesion. No CT evidence for acute territorial infarct. No midline shift or extra-axial collections. VENTRICLES: No hydrocephalus. ORBITS: The orbits are unremarkable. SINUSES AND MASTOIDS: The paranasal sinuses and mastoid air cells are clear. BONES: Bilateral frontal craniotomy defects and postsurgical changes involving the left parietal bone. No acute fracture. SOFT TISSUES: Unremarkable. 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 Diffuse cerebral atrophy and periventricular chronic microangiopathic ischemic changes. Deep brain stimulation hardware in expected position along bilateral thalami. Bilateral frontal craniotomy defects and postsurgical changes involving the left parietal bone. No acute intracranial abnormality. /[place] DICTATED BY: OSCAR OLMSTEAD Jr., MD DATE: 06/16/252244 ELECTRONICALLY SIGNED BY: OSCAR OLMSTEAD Jr., MD DATE: 06/16/252244 PATIENT: CHANEL HOLT MR#: [id number] : 1935 SEX: M AGE: 89 LOCATION: ED ORDER 43 STATUS: REG ER REPORT#: [id number] SERVICE 42 REASON: NAUSEA AND VOMMITING ORDERING PHYSICIAN: EMBER HOLLOWAY PROCEDURE: ABD PEL W - CT ABDOMEN/PELVIS W/CONTRAST EXAM: CT Abdomen and Pelvis without and with IV contrast. CLINICAL HISTORY: Nausea and vomiting. TECHNIQUE: Thin collimated axial CT images of the abdomen and pelvis were obtained with sagittal and coronal reformatted images also submitted. CT scan done according to ALARA (As Low As Reasonably Achievable). CONTRAST: Intravenous contrast was administered. COMPARISON: None. FINDINGS: Unremarkable visualized lung parenchyma. Coronary artery calcification and prosthetic aortic valve in place. Small hiatus hernia. There is no focal abnormality appreciated within the liver, gallbladder, pancreas, spleen, adrenals, or kidneys. There is no obvious bowel wall thickening. Bowel loops are normal in caliber without evidence of obstruction or ileus. The appendix is normal. Mild constipation. Uncomplicated colonic diverticulosis. Partially distended urinary bladder with Shfaer's catheter in place. Mild prostatomegaly. Moderate calcific plaques in the abdominal aorta. No lymphadenopathy. No free fluid. Fat-containing bilateral inguinal hernias. There is no acute osseous abnormality. Moderate thoracolumbar spondylosis and dextroscoliosis. IMPRESSION: 1. No acute abdominal or pelvic abnormality. 2. Small hiatus hernia. 3. Coronary artery calcification and prosthetic aortic valve. 4. Mild prostatomegaly. 5. Uncomplicated colonic diverticulosis with mild constipation. 6. Bilateral fat-containing inguinal hernias. 7. Moderate thoracolumbar spondylosis and dextroscoliosis. /[place] DICTATED BY: OSCAR OLMSTEAD Jr., MD DATE: 06/16/252340 ELECTRONICALLY SIGNED BY: OSCAR OLMSTEAD Jr., MD DATE: 06/16/252340 ASSESSMENT: Altered mental status, POA Shortness of breath, POA Hypothyroidism, POA CAD PLAN: Altered mental status, POA Shortness of breath, POA Hypothyroidism, POA PHYSICIAN RESIDENT STATEMENT I was present with the resident during the History and Physical exam and I have reviewed the resident's note. This case was discussed with the resident and I agree with the history, physical exam and medical decision making as documented. Additions/exceptions/observations were directly added to the notes. OUSMANE Abad MD, MD Jun 17, 2025 10:49
[2025-06-17] MEDS ORDERED: ASPI-1443 PO (13:22)
--- NOTE | 2025-06-17 16:28 | DS ---
Discharge Summary Hospital Course Summary: The patient is a 89 year old male with a past medical history of hypothyroidism, coronary artery disease, brain stimulator implant for essential tremors, TAVR, hernia repair, and bilateral knee replacement. The patient presented in the ER of due to shortness of breath and altered mental status. Patient's pulse rate the bedside and provided history. According to the , at about 4:30 p.m. yesterday, the patient began to appear short of breath. Duration was on and off. The described it as, " like he was having trouble breathing, look like he was struggling but he was not breathing fast. " There was no aggravating factors. Symptoms were alleviated after receiving valium in the emergency department. On arrival his hemoglobin was 15.4, WBC was 8.7, platelets 253. His sodium was 135, BUN11, creatinine 0.8 and ammonia < 10. His troponin was 16. Patient was admitted for AMS. Patient's x-ray and abdominal/pelvis CT were nonsignificant for any pathological finding. CT head showed focal encephalomalacia of the left occipital lobe, chronic ischemic changes, and deep brain stimulator hardware. His urine drug screen was negative and he was negative for COVID-19. A urinary catheter was placed for acute urinary retention Gradually, the patient's AMS resolved and he was back to baseline orientation, awake fullness and alertness. The patient could not remember the year, month, where he was and who his was. The patient is vitally stable and discharged after removal of Shafer's catheter and bladder training. [employer](s): Procedure(s): PATIENT: CHANEL HOLT MR#: [id number] : 1935 SEX: M AGE: 89 LOCATION: [facility] ORDER 48 STATUS: REG [facility] REPORT#: [id number] SERVICE 47 REASON: sob ORDERING PHYSICIAN: EMBER HOLLOWAY PROCEDURE: CXR1VW - CHEST 1VW EXAM: CR Chest, 1 View. CLINICAL HISTORY: sob COMPARISON: Radiograph dated October 04, 2023 FINDINGS: Stimulator device and leads are not changing positions. LUNGS: There is no mass, infiltrate, or acute pulmonary abnormality. PLEURAL SPACES: No evidence of pleural effusion or pneumothorax. MEDIASTINUM: Heart size is stable. Pulmonary vessels are within normal limits. BONES: No acute osseous abnormality. IMPRESSION: 1. No acute cardiopulmonary findings. /[place] DICTATED BY: OSCAR OLMSTEAD Jr., MD DATE: 06/16/252239 ELECTRONICALLY SIGNED BY: OSCAR OLMSTEAD Jr., MD DATE: 06/16/252239 PATIENT: CHANEL HOLT MR#: [id number] : 1935 SEX: M AGE: 89 LOCATION: [facility] ORDER 48 STATUS: [facility] REPORT#: [id number] SERVICE 47 REASON: ams ORDERING PHYSICIAN: EMBER HOLLOWAY PROCEDURE: HEAD WO - CT HEAD/BRAIN W/O CONTRAST EXAM: CT Head Without IV contrast. CLINICAL HISTORY: Patient presents with altered mental status. TECHNIQUE: Axial computed tomography images of the head/brain without intravenous contrast. COMPARISON: CT head dated January 21, 2023. 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 Linear electrode leads are identified in the deep brain nuclei along the bilateral thalami, consistent with deep brain stimulation hardware. There is diffuse cerebral atrophy characterized by prominence of the cortical sulci and ventricular system. There are periventricular hypoattenuations consistent with chronic microangiopathic ischemic changes. No evidence of acute hemorrhage. No mass lesion. No CT evidence for acute territorial infarct. No midline shift or extra-axial collections. VENTRICLES: No hydrocephalus. ORBITS: The orbits are unremarkable. SINUSES AND MASTOIDS: The paranasal sinuses and mastoid air cells are clear. BONES: Bilateral frontal craniotomy defects and postsurgical changes involving the left parietal bone. No acute fracture. SOFT TISSUES: Unremarkable. 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 Diffuse cerebral atrophy and periventricular chronic microangiopathic ischemic changes. Deep brain stimulation hardware in expected position along bilateral thalami. Bilateral frontal craniotomy defects and postsurgical changes involving the left parietal bone. No acute intracranial abnormality. /[place] DICTATED BY: OSCAR OLMSTEAD Jr., MD DATE: 06/16/252244 ELECTRONICALLY SIGNED BY: OSCAR OLMSTEAD Jr., MD DATE: 06/16/252244 Signed PATIENT: CHANEL HOLT MR#: [id number] : 1935 SEX: M AGE: 89 LOCATION: [facility] ORDER 43 STATUS: REG REPORT#: [id number] SERVICE 42 REASON: NAUSEA AND VOMMITING ORDERING PHYSICIAN: EMBER HOLLOWAY PROCEDURE: ABD PEL W - CT ABDOMEN/PELVIS W/CONTRAST EXAM: CT Abdomen and Pelvis without and with IV contrast. CLINICAL HISTORY: Nausea and vomiting. TECHNIQUE: Thin collimated axial CT images of the abdomen and pelvis were obtained with sagittal and coronal reformatted images also submitted. CT scan done according to ALARA (As Low As Reasonably Achievable). CONTRAST: Intravenous contrast was administered. COMPARISON: None. FINDINGS: Unremarkable visualized lung parenchyma. Coronary artery calcification and prosthetic aortic valve in place. Small hiatus hernia. There is no focal abnormality appreciated within the liver, gallbladder, pancreas, spleen, adrenals, or kidneys. There is no obvious bowel wall thickening. Bowel loops are normal in caliber without evidence of obstruction or ileus. The appendix is normal. Mild constipation. Uncomplicated colonic diverticulosis. Partially distended urinary bladder with Shafer's catheter in place. Mild prostatomegaly. Moderate calcific plaques in the abdominal aorta. No lymphadenopathy. No free fluid. Fat-containing bilateral inguinal hernias. There is no acute osseous abnormality. Moderate thoracolumbar spondylosis and dextroscoliosis. IMPRESSION: 1. No acute abdominal or pelvic abnormality. 2. Small hiatus hernia. 3. Coronary artery calcification and prosthetic aortic valve. 4. Mild prostatomegaly. 5. Uncomplicated colonic diverticulosis with mild constipation. 6. Bilateral fat-containing inguinal hernias. 7. Moderate thoracolumbar spondylosis and dextroscoliosis. /[place] DICTATED BY: OSCAR OLMSTEAD Jr., MD DATE: 06/16/252340 ELECTRONICALLY SIGNED BY: OSCAR OLMSTEAD Jr., MD DATE: 06/16/252340 Assessment/Plan: ASSESSMENT: Altered mental status, POA Shortness of breath, POA Hypothyroidism, POA CAD PLAN: Altered mental status, POA Shortness of breath, POA Hypothyroidism, POA Discharge Instructions: Follow-up with your PCP in 2-3 days Follow with Neurology in 1 week Home Medications: Active Scripts Aspirin (Aspirin EC) 81 Mg Tablet.dr, 1 TAB PO DAILY for 30 Days, #30 TAB 0 Refills Prov:PEARL BOLANOS MD 06/17/25 Reported Medications Levothyroxine Sodium (Levothroid/Synthroid) 75 Mcg Tab, 1 TAB PO DAILY 06/17/25 Levothyroxine Sodium (Levothyroxine Sodium) 75 Mcg Tablet, 1 TAB PO DAILY 10/05/23 Discontinued Scripts Ondansetron (Ondansetron Odt) 4 Mg Tab.rapdis, 4 MG PO Q6HPRN PRN for nausea, #16 TAB 0 Refills Prov:DAYAN LUIS NP 07/08/24 [Paxlovid] 3,00/,150 No Conflict Check, 300 MG PO BID for 5 Days, #50 0 Refills THREE TABLETS BY MOUTH TWICE A DAY FOR FIVE DAYS. Prov:DAYAN LUIS NP 07/08/24 New Medications: Aspirin (Aspirin EC) 81 Mg Tablet. 1 TAB PO DAILY for 30 Days, #30 TAB 0 Refills Continued Medications: Levothyroxine Sodium (Levothyroxine Sodium) 75 Mcg Tablet 1 TAB PO DAILY Levothyroxine Sodium (Levothroid/Synthroid) 75 Mcg Tab 1 TAB PO DAILY Time spent arranging discharge: 1-30 minutes PHYSICIAN RESIDENT STATEMENT I was present with the resident during the History and Physical exam and I have reviewed the resident's note. This case was discussed with the resident and I agree with the history, physical exam and medical decision making as documented. Additions/exceptions/observations were directly added to the notes. Melvin Morales MD, SYED M MD Jun 17, 2025 16:28
== END 2025-06-17 17:30 | disposition home or self-care (01) ==
LOC: EDH 19:27 → INTOOBSV 23:55 → EDHIP 23:55 → 3DH 06-17 02:02
PROVIDERS: ADMIT Internal Medicine; ATTEND Internal Medicine
DX: R41.82 Altered mental status, unspecified (principal); I25.10 Atherosclerotic heart disease of native coronary artery without angina pectoris; E03.9 Hypothyroidism, unspecified; G25.0 Essential tremor; Z20.822 Contact with and (suspected) exposure to COVID-19; Z79.899 Other long term (current) drug therapy; Z98.890 Other specified postprocedural states
CPT/HCPCS: 96361; 96375; 99285; 82550; 83735 ×2; 84484; 80048 ×2; 82803; 83880 ×2; 80305; 82140 ×3; 85025 ×2; 81001; 36415 ×2; 71045; 70450; 74177; 96374; 93005; 36600; 96372; 84443; 84100; 83605; 82607; 86140; 87635; 94640; J3360; J2405; Q9967; G0378 ×3; J1650; 94664